=== PATIENT | male | born 1940 | race Two or more races ===

== ENCOUNTER 2024-10-10 11:23 | Emergency (ER) | payer OTHER ==
[~2024-10-10] VITALS: Ht 177.8 cm; Wt 95.3 kg
[2024-10-10] MEDS ORDERED: CARVEDILOL ER40 MG PO (11:30)
[2024-10-10] MEDS ORDERED: 0.9 % SODIUM CHLORIDE 1,000 ML IV SCH (11:30)
[2024-10-10] MEDS ORDERED: ZYLOPRIM100 M1 PO (11:30)
[2024-10-10] MEDS ORDERED: TAMS0.4C PO (11:30)
[2024-10-10] MEDS ORDERED: PRILOSEC OTC20 MG PO (11:31)
[2024-10-10] MEDS ORDERED: ARICEPT5 MG (11:31)
[2024-10-10 12:29] LABS: BASO % 0.6 % (0.1-1.2); EOS # 0.75 (0.04-0.54); EOS % 6.0 % (0.7-7.0); LYMPH # 1.23 (1.18-3.74); LYMPH % 9.8 % (19.3-53.1); MEAN PLATELET VOLUME 9.80 fl (9.4-12.4); MONO # 0.80 (0.24-0.82); MONO % 6.4 % (4.7-12.5); NEUT # 9.69 (1.56-6.13); NEUT % 76.8 % (34.0-71.1); RED CELL DISTRIBUTION WIDTH 14.4 % (11.6-14.4)
[2024-10-10 12:50] LABS: URINE APPEARANCE Turbid; URINE BILIRRUBIN Negative (NEGATIVE); URINE BLOOD Large; URINE COLOR Orange; URINE EPITHELIAL CELLS 5.3 uL (0.0-38.8); URINE GLUCOSE Negative (NEGATIVE); URINE KETONE Negative (NEGATIVE); URINE LEUKOCYTE Large; URINE NITRATE Negative; URINE UROBILINOGEN 1.0 E.U./dl; URINE WBC 2453.6 uL (0.0-23.2)
[2024-10-10 12:53] LABS: BUN CREA RATIO 51.0 (7.0-25.0); CREATININE SERUM 0.65 mg/dL (0.70-1.30); GFR 117.32; GLUCOSE FASTING 132.0 mg/dL (65-100); OSMOLALITY SERUM 289.0 MOSM/KG (275-295)
[2024-10-10 13:00] LABS: URINE BACTERIA > 9821.5 uL (0.0-1933); URINE CAST 1.00 uL (0.0-1.40); URINE PROTEIN 100 (NEGATIVE); URINE RBC > 10558.9 uL (0.0-20.8)
[2024-10-10 13:03] LABS: URINE CRYSTALS FEW /HPF
[2024-10-10] MEDS ORDERED: CIPROFLOXACIN IN 5 % DEXTROSE 400 MG/200 ML PIGGYBAG IV ONE ×2 (13:55→14:00)
== END 2024-10-10 18:31 | disposition home or self-care (01) ==
LOC: ER 12:11
PROVIDERS: Emergency Medicine
DX: R31.9 Hematuria, unspecified (principal); I10 Essential (primary) hypertension; Z88.0 Allergy status to penicillin
CPT/HCPCS: 36415; 74176; 96365; 96366; 99284; J0744; J7030